=== PATIENT | female | born 1945 | race African-American/Black ===

== ENCOUNTER → 2020-06-21 | Outpatient (CLI) | payer OTHER | LOC: HYPER 09:28 | PROVIDERS: ATTEND Emergency Medicine | DX: S81.801A Unspecified open wound, right lower leg, initial encounter (principal); S80.11XA Contusion of right lower leg, initial encounter; I87.311 Chronic venous hypertension (idiopathic) with ulcer of right lower extremity; E11.622 Type 2 diabetes mellitus with other skin ulcer; L97.812 Non-pressure chronic ulcer of other part of right lower leg with fat layer exposed; E11.628 Type 2 diabetes mellitus with other skin complications; L03.115 Cellulitis of right lower limb; M81.0 Age-related osteoporosis without current pathological fracture; E66.8 Other obesity; Z68.37 Body mass index [BMI] 37.0-37.9, adult; Z79.82 Long term (current) use of aspirin; Z79.4 Long term (current) use of insulin; Z96.642 Presence of left artificial hip joint; Z90.710 Acquired absence of both cervix and uterus; W22.8XXA Striking against or struck by other objects, initial encounter; X58.XXXA Exposure to other specified factors, initial encounter; Y93.89 Activity, other specified; Y92.89 Other specified places as the place of occurrence of the external cause; Y99.8 Other external cause status ==

== ENCOUNTER → 2020-07-05 | Outpatient (CLI) | payer OTHER | LOC: HYPER 09:54 | PROVIDERS: ATTEND Specialist | DX: S81.801D Unspecified open wound, right lower leg, subsequent encounter (principal); I87.311 Chronic venous hypertension (idiopathic) with ulcer of right lower extremity; L97.812 Non-pressure chronic ulcer of other part of right lower leg with fat layer exposed; E11.628 Type 2 diabetes mellitus with other skin complications; L03.115 Cellulitis of right lower limb; S80.11XD Contusion of right lower leg, subsequent encounter; M81.0 Age-related osteoporosis without current pathological fracture; E66.8 Other obesity; Z68.37 Body mass index [BMI] 37.0-37.9, adult; Z79.82 Long term (current) use of aspirin; Z79.4 Long term (current) use of insulin; X58.XXXD Exposure to other specified factors, subsequent encounter ==

== ENCOUNTER → 2020-07-19 | Outpatient (CLI) | payer OTHER | LOC: HYPER 09:47 | PROVIDERS: ATTEND Specialist | DX: E11.622 Type 2 diabetes mellitus with other skin ulcer (principal); I87.311 Chronic venous hypertension (idiopathic) with ulcer of right lower extremity; L97.812 Non-pressure chronic ulcer of other part of right lower leg with fat layer exposed; S80.11XD Contusion of right lower leg, subsequent encounter; L03.115 Cellulitis of right lower limb; E66.8 Other obesity; M81.0 Age-related osteoporosis without current pathological fracture; Z79.84 Long term (current) use of oral hypoglycemic drugs; Z79.82 Long term (current) use of aspirin; Z68.37 Body mass index [BMI] 37.0-37.9, adult; X58.XXXD Exposure to other specified factors, subsequent encounter ==

== ENCOUNTER → 2020-07-26 | Outpatient (CLI) | payer OTHER | LOC: HYPER 09:48 | PROVIDERS: ATTEND Specialist | DX: E11.622 Type 2 diabetes mellitus with other skin ulcer (principal); I87.311 Chronic venous hypertension (idiopathic) with ulcer of right lower extremity; L97.812 Non-pressure chronic ulcer of other part of right lower leg with fat layer exposed; S80.11XD Contusion of right lower leg, subsequent encounter; L03.115 Cellulitis of right lower limb; E66.8 Other obesity; M81.0 Age-related osteoporosis without current pathological fracture; Z79.84 Long term (current) use of oral hypoglycemic drugs; Z79.82 Long term (current) use of aspirin; X58.XXXD Exposure to other specified factors, subsequent encounter ==

== ENCOUNTER → 2020-08-02 | Outpatient (CLI) | payer OTHER | LOC: HYPER 09:38 | PROVIDERS: ATTEND Specialist | DX: S81.801D Unspecified open wound, right lower leg, subsequent encounter (principal); E11.621 Type 2 diabetes mellitus with foot ulcer; I87.311 Chronic venous hypertension (idiopathic) with ulcer of right lower extremity; L97.812 Non-pressure chronic ulcer of other part of right lower leg with fat layer exposed; S80.11XD Contusion of right lower leg, subsequent encounter; E11.628 Type 2 diabetes mellitus with other skin complications; L03.115 Cellulitis of right lower limb; M81.0 Age-related osteoporosis without current pathological fracture; E66.8 Other obesity; Z79.82 Long term (current) use of aspirin; Z79.4 Long term (current) use of insulin; Z68.37 Body mass index [BMI] 37.0-37.9, adult; X58.XXXD Exposure to other specified factors, subsequent encounter ==

== ENCOUNTER → 2020-08-09 | Outpatient (CLI) | payer OTHER | LOC: HYPER 09:32 | PROVIDERS: ATTEND Specialist | DX: E11.621 Type 2 diabetes mellitus with foot ulcer (principal); I87.311 Chronic venous hypertension (idiopathic) with ulcer of right lower extremity; L97.812 Non-pressure chronic ulcer of other part of right lower leg with fat layer exposed; S80.11XD Contusion of right lower leg, subsequent encounter; L03.115 Cellulitis of right lower limb; M81.0 Age-related osteoporosis without current pathological fracture; E66.8 Other obesity; Z79.82 Long term (current) use of aspirin; Z79.84 Long term (current) use of oral hypoglycemic drugs; Z68.37 Body mass index [BMI] 37.0-37.9, adult; X58.XXXD Exposure to other specified factors, subsequent encounter ==

== ENCOUNTER → 2020-08-16 | Outpatient (CLI) | payer OTHER | LOC: HYPER 09:46 | PROVIDERS: ATTEND Specialist | DX: E11.621 Type 2 diabetes mellitus with foot ulcer (principal); I87.311 Chronic venous hypertension (idiopathic) with ulcer of right lower extremity; L97.812 Non-pressure chronic ulcer of other part of right lower leg with fat layer exposed; S80.11XD Contusion of right lower leg, subsequent encounter; L03.115 Cellulitis of right lower limb; M81.0 Age-related osteoporosis without current pathological fracture; E66.8 Other obesity; Z79.82 Long term (current) use of aspirin; Z79.84 Long term (current) use of oral hypoglycemic drugs; Z68.37 Body mass index [BMI] 37.0-37.9, adult; X58.XXXD Exposure to other specified factors, subsequent encounter ==

== ENCOUNTER → 2020-08-23 | Outpatient (CLI) | payer OTHER | LOC: HYPER 09:49 | PROVIDERS: ATTEND Specialist | DX: E11.622 Type 2 diabetes mellitus with other skin ulcer (principal); I87.311 Chronic venous hypertension (idiopathic) with ulcer of right lower extremity; L97.812 Non-pressure chronic ulcer of other part of right lower leg with fat layer exposed; S80.11XD Contusion of right lower leg, subsequent encounter; L03.115 Cellulitis of right lower limb; E66.8 Other obesity; M81.0 Age-related osteoporosis without current pathological fracture; Z79.84 Long term (current) use of oral hypoglycemic drugs; Z79.82 Long term (current) use of aspirin; X58.XXXD Exposure to other specified factors, subsequent encounter ==

== ENCOUNTER → 2020-09-13 | Outpatient (CLI) | payer OTHER | LOC: HYPER 09:38 | PROVIDERS: ATTEND Specialist | DX: E11.622 Type 2 diabetes mellitus with other skin ulcer (principal); I87.311 Chronic venous hypertension (idiopathic) with ulcer of right lower extremity; L97.812 Non-pressure chronic ulcer of other part of right lower leg with fat layer exposed; S80.11XD Contusion of right lower leg, subsequent encounter; L03.115 Cellulitis of right lower limb; M81.0 Age-related osteoporosis without current pathological fracture; Z79.84 Long term (current) use of oral hypoglycemic drugs; Z79.52 Long term (current) use of systemic steroids; X58.XXXD Exposure to other specified factors, subsequent encounter ==

== ENCOUNTER → 2020-09-20 | Outpatient (CLI) | payer OTHER | LOC: HYPER 09:53 | PROVIDERS: ATTEND Specialist | DX: E11.622 Type 2 diabetes mellitus with other skin ulcer (principal); I87.311 Chronic venous hypertension (idiopathic) with ulcer of right lower extremity; L97.812 Non-pressure chronic ulcer of other part of right lower leg with fat layer exposed; S80.11XD Contusion of right lower leg, subsequent encounter; L03.115 Cellulitis of right lower limb; M81.0 Age-related osteoporosis without current pathological fracture; E66.8 Other obesity; Z79.84 Long term (current) use of oral hypoglycemic drugs; Z79.82 Long term (current) use of aspirin; Z68.37 Body mass index [BMI] 37.0-37.9, adult; W22.8XXD Striking against or struck by other objects, subsequent encounter ==

== ENCOUNTER → 2020-09-27 | Outpatient (CLI) | payer OTHER | LOC: HYPER 07:42 | PROVIDERS: ATTEND Specialist | DX: E11.622 Type 2 diabetes mellitus with other skin ulcer (principal); I87.311 Chronic venous hypertension (idiopathic) with ulcer of right lower extremity; L97.812 Non-pressure chronic ulcer of other part of right lower leg with fat layer exposed; S80.11XD Contusion of right lower leg, subsequent encounter; L03.115 Cellulitis of right lower limb; M81.0 Age-related osteoporosis without current pathological fracture; E66.8 Other obesity; Z79.84 Long term (current) use of oral hypoglycemic drugs; Z79.82 Long term (current) use of aspirin; Z68.37 Body mass index [BMI] 37.0-37.9, adult; W22.8XXD Striking against or struck by other objects, subsequent encounter ==

== ENCOUNTER → 2020-10-04 | Outpatient (CLI) | payer OTHER | LOC: HYPER 09:55 | PROVIDERS: ATTEND Specialist | DX: E11.622 Type 2 diabetes mellitus with other skin ulcer (principal); I87.311 Chronic venous hypertension (idiopathic) with ulcer of right lower extremity; L97.812 Non-pressure chronic ulcer of other part of right lower leg with fat layer exposed; S80.11XD Contusion of right lower leg, subsequent encounter; L03.115 Cellulitis of right lower limb; M81.0 Age-related osteoporosis without current pathological fracture; E66.8 Other obesity; Z79.84 Long term (current) use of oral hypoglycemic drugs; Z79.82 Long term (current) use of aspirin; Z68.37 Body mass index [BMI] 37.0-37.9, adult; W22.8XXD Striking against or struck by other objects, subsequent encounter ==

== ENCOUNTER → 2020-10-11 | Outpatient (CLI) | payer OTHER | LOC: HYPER 08:45 | PROVIDERS: ATTEND Specialist | DX: E11.622 Type 2 diabetes mellitus with other skin ulcer (principal); I87.311 Chronic venous hypertension (idiopathic) with ulcer of right lower extremity; L97.812 Non-pressure chronic ulcer of other part of right lower leg with fat layer exposed; S80.11XD Contusion of right lower leg, subsequent encounter; L03.115 Cellulitis of right lower limb; M81.0 Age-related osteoporosis without current pathological fracture; E66.8 Other obesity; Z79.84 Long term (current) use of oral hypoglycemic drugs; Z79.82 Long term (current) use of aspirin; Z68.37 Body mass index [BMI] 37.0-37.9, adult; W22.8XXD Striking against or struck by other objects, subsequent encounter ==

== ENCOUNTER → 2020-11-01 | Outpatient (CLI) | payer OTHER | LOC: HYPER 10:19 | PROVIDERS: ATTEND Specialist | DX: E11.622 Type 2 diabetes mellitus with other skin ulcer (principal); I87.311 Chronic venous hypertension (idiopathic) with ulcer of right lower extremity; L97.812 Non-pressure chronic ulcer of other part of right lower leg with fat layer exposed; S80.11XD Contusion of right lower leg, subsequent encounter; L03.115 Cellulitis of right lower limb; M81.0 Age-related osteoporosis without current pathological fracture; E66.8 Other obesity; Z79.84 Long term (current) use of oral hypoglycemic drugs; Z79.82 Long term (current) use of aspirin; Z68.37 Body mass index [BMI] 37.0-37.9, adult; W22.8XXD Striking against or struck by other objects, subsequent encounter ==

== ENCOUNTER → 2020-11-15 | Outpatient (CLI) | payer OTHER | LOC: HYPER 09:52 | PROVIDERS: ATTEND Specialist | DX: E11.622 Type 2 diabetes mellitus with other skin ulcer (principal); I87.311 Chronic venous hypertension (idiopathic) with ulcer of right lower extremity; L97.812 Non-pressure chronic ulcer of other part of right lower leg with fat layer exposed; S80.11XD Contusion of right lower leg, subsequent encounter; L03.115 Cellulitis of right lower limb; M81.0 Age-related osteoporosis without current pathological fracture; E66.8 Other obesity; Z79.84 Long term (current) use of oral hypoglycemic drugs; Z79.82 Long term (current) use of aspirin; Z68.37 Body mass index [BMI] 37.0-37.9, adult; W22.8XXD Striking against or struck by other objects, subsequent encounter ==